=== PATIENT | female | born 1955 | race Caucasian/White ===

== ENCOUNTER 2016-06-28 15:49 | Emergency (ER) | payer OTHER ==
[~2016-06-28] VITALS: Ht 165.1 cm; Wt 54.4 kg
[~2016-06-28 15:49] MED LIST: ABILIFY10 MG PO; ALBUTEROL0.09 MG/A1 IH; ATIVAN0.5 M1 PO; HALOPERIDOL2 M1 PO; NIFEDICAL XL30 M1 PO; RESTORIL15 MG PO; VENTOLIN H0.09 MG/Ac IH; [UNRECOGNIZED DRUG - OTHER] PO
[2016-06-28 15:54] VITALS: BP 177/85
--- NOTE | 2016-06-28 18:35 | NUR ---
Pt taken to bed 8.
--- NOTE | 2016-06-28 18:54 | NUR ---
PT CAME TO ER DUE TO SOB X3 WEEKS. PT STATES SHE HAS A HX OF ASTHMA/COPD. PT STATES THAT SHE STILL SMOKE A LITTLE AND TRYING TO QUIT. PT HAS DIFFICULTY OF SPEAKING. PRODUCTIVE COUGH NOTED. DENIES FEVER / CP/ N/V.NO ACUTE DISTRESS NOTED AT THIS TIME. ALL MONITORS PLACED IN. HOB ELEVATED. SAFETY PRECAUTION INSTITUTED;SIDE RAILS UP;BED BRAKES APPLIED. NEEDS ATTENDED. MD AWARE OF PT STATUS.
--- NOTE | 2016-06-28 18:56 | NUR ---
60/F presents to the ED for evaluation of SOB x2 weeks. Pt also c/o anxiety at this time. Pt states "I take an anxiety medicine at 6pm that I need to take." Pt denies pain, denies chest pain. Pt is AOX4, speaking if full sentences. 96% on room air. Pt does not appear to be in distress. VSS. Pt states "MY blood pressure is high because I need my medication for anxiety." Pt states "I take half a tab of Ativan. That's all I need."
--- NOTE | 2016-06-28 19:15 | NUR ---
TRANSFER OF CARE/REPORT GIVEN TO RN MONIQUE
--- NOTE | 2016-06-28 19:16 | NUR ---
RECEIVED REPORT FROM DAY NURSE CORRY VANN AND JANAE MOSES FOR TRANSFER OF CARE.
--- NOTE | 2016-06-28 19:25 | NUR ---
DR PAN AT BEDSIDE EVALUATING PATIENT.
[2016-06-28] MEDS ORDERED: ALBUTEROL 0.083% 2.5 MG/3 ML NEBU INH ONE (19:40)
[2016-06-28 20:12] VITALS: BP 135/78
--- NOTE | 2016-06-28 20:12 | NUR ---
Patient discharged with v/s stable. Written and verbal after care instructions given and explained. Patient alert, oriented and verbalized understanding of instructions. Ambulatory with steady gait. All questions addressed prior to discharge. ID band removed. Patient advised to follow up with PMD. Rx of ATROVENT given. Patient educated on indication of medication including possible reaction and side effects. Opportunity to ask questions provided and answered.
== END 2016-06-28 20:12 | disposition home or self-care (01) ==
LOC: MED 15:49
DX: J44.1 Chronic obstructive pulmonary disease with (acute) exacerbation (principal); J45.909 Unspecified asthma, uncomplicated; I10 Essential (primary) hypertension; F17.210 Nicotine dependence, cigarettes, uncomplicated; Z86.73 Personal history of transient ischemic attack (TIA), and cerebral infarction without residual deficits
CPT/HCPCS: 71020; 94640; 94664; 99284; J7613

== ENCOUNTER 2017-11-27 12:38 | Inpatient (IN) | payer OTHER ==
[~2017-11-27] VITALS: Ht 162.6 cm; Wt 47.2 kg
[~2017-11-27 12:38] MED LIST changes: +ABI10 PO; -ABILIFY10 MG PO; +ALBU0.0912 IH; +ALBU0.0939 IH; -ALBUTEROL0.09 MG/A1 IH; +ATI.5 PO; -ATIVAN0.5 M1 PO; +HALO2TAB PO; -HALOPERIDOL2 M1 PO; +MULT1CAP64 PO; -NIFEDICAL XL30 M1 PO; -RESTORIL15 MG PO; -VENTOLIN H0.09 MG/Ac IH; -[UNRECOGNIZED DRUG - OTHER] PO
--- NOTE | 2017-11-27 12:38 | NUR ---
PT BIBA FOR RESPIRATORY DISTRESS WAS GIVEN BREATHING TX 10MG ALBUTEROL AND 0.5MG WITH NO ADVERSE REACTION POST TX B\S RHONCHI AND ABG DRAWN ON LB WITHOUT INCIDENT AND RESULTS GIVEN TO DR. AUGUSTE AND PT WAS THEN PLACED ON REDD BIPAP WITH SETTING 12/6 RR 20 FIO2 40% , MED FACE MASK WITH GEL PROTETIC IN PLACE, ALARMS ON AND AUDIBLE AND ABMU BAG AT HOB.
[2017-11-27 12:40] VITALS: BP 217/149
[2017-11-27] MEDS ORDERED: IPRATROPIUM 0.02% 0.5 MG/2.5 ML NEBU INH ONE (12:40)
[2017-11-27] MEDS ORDERED: MAG SULF 2000 MG/WATER PREMIX 50 ML IV ONE (12:40)
[2017-11-27] MEDS ORDERED: methylPREDNISolone SS 125 MG/2 ML VIAL IVP ONE (12:40)
[2017-11-27] MEDS ORDERED: NACL 0.9% 500 ML IV SCH (12:40)
[2017-11-27] MEDS ORDERED: ALBUTEROL 0.083% 2.5 MG/3 ML NEBU INH ONE (12:40)
--- NOTE | 2017-11-27 12:42 | NUR ---
62/F BIBA FOR C/O REEPIRATORY DISTRESS S/P SZ LIKE ACTIVITY WHILE AT [facility]. PER EMS, PT HAD FULL TONIC CLONIC SZ LIKE ACTIVITY FOR APPROXIMATELY 2 MINS. PT WITH RHONCI, SHALLOW RESPS, COUGHING UP CHUNKS OF FOOD UPON EMS ARRIVAL. PT O2 SATS 87% INITIALLY. HX: SZ.LUNGS RHONCHI& WEEZING BL. PATIENT STATES PAIN OF 0/10 AT THIS TIME; VSS; PATIENT POSITIONED FOR COMFORT; HOB ELEVATED; BEDRAILS UP X2; BED DOWN. ER MADE AWARE OF PT STATUS. Addendum: 11/27/17 at 1542 by MED1 DONNIE LEGS SWELLING.
[2017-11-27] MEDS ORDERED: METO25TE2 PO (13:02)
[2017-11-27] MEDS ORDERED: ATRMDI INH (13:02)
[2017-11-27] MEDS ORDERED: NAPR-54 PO (13:02)
[2017-11-27] MEDS ORDERED: MULT-405 PO (13:02)
[2017-11-27] MEDS ORDERED: NIFE30TE5 PO (13:02)
[2017-11-27] MEDS ORDERED: DETLA4 PO (13:02)
[2017-11-27] MEDS ORDERED: PAX10 PO (13:02)
[2017-11-27] MEDS ORDERED: CLON1TAB PO (13:02)
[2017-11-27 13:08] LABS: BASOPHILS # (AUTO) 0.1 K/uL (0.00-0.22); BASOPHILS % (AUTO) 0.5 % (0.0-2.0); EOSINOPHILS # (AUTO) 0.2 K/uL (0-0.4); EOSINOPHILS % (AUTO) 1.2 % (0.0-4.0); HEMATOCRIT 48.9 % (36-48); HEMOGLOBIN 16.1 g/dL (12.0-16.0); LYMPHOCYTES # (AUTO) 5.8 K/uL (2.5-16.5); MEAN CORPUSCULAR HEMOGLOBIN 31 pg (27-31); MEAN CORPUSCULAR HGB CONC 33 g/dL (33-37); MEAN CORPUSCULAR VOLUME 92.5 fL (80-94); MONOCYTES # (AUTO) 1.1 K/uL (0.8-1.0); MONOCYTES % (AUTO) 7.5 % (1.7-9.3); NEUTROPHILS # (AUTO) 7.1 K/uL (1.8-7.7); NEUTROPHILS % (AUTO) 49.8 % (42.2-75.2); PLATELET COUNT (AUTO) 240 K/uL (140-450); RED BLOOD CELL COUNT(AUTO) 5.29 MIL/uL (4.20-5.40); RED CELL DISTRIBUTION WIDTH 13.4 % (11.6-13.7); WHITE BLOOD COUNT (AUTO) 14.2 K/uL (4.8-10.8)
[2017-11-27] MEDS ORDERED: NITROGLYCERIN 2% 1 GM PKT TP ONE (13:10)
[2017-11-27] MEDS ORDERED: NITROGLYCERIN 0.4 MG TAB SL ONE (13:10)
[2017-11-27] MEDS: MAGNESIUM SULFATE 1GM in DEXTROSE 5% 100 ML PREMIX IV SCH ×2 (13:13→16:00)
[2017-11-27 13:26] VITALS: BP 188/132
--- NOTE | 2017-11-27 13:30 | NUR ---
Laura giang in ED - 11/27/17 at 1340 by MED1 RT AT BEDSIDE FOR CPAP.
--- NOTE | 2017-11-27 13:30 | NUR ---
RT AT BEDSIDE FOR BIPAP.
[2017-11-27 13:51] LABS: ANION GAP 22.5 (8-16); CARBON DIOXIDE 17.8 mmol/L (21-32); CREATININE 0.7 mg/dL (0.6-1.3); POTASSIUM 3.3 mmol/L (3.5-5.1); TOTAL BILIRUBIN 0.6 mg/dL (0.0-1.0)
--- NOTE | 2017-11-27 14:06 | NUR ---
Patient being reevaluated by DR AUGUSTE at bedside.
[2017-11-27] MEDS ORDERED: LEVOFLOXACIN 500 MG/D5W PREMIX 100 ML IV ONE (14:10)
[2017-11-27] MEDS ORDERED: FUROSEMIDE 20 MG/2 ML VIAL IVP ONE (14:10)
[2017-11-27 14:30] LABS: APPEARANCE,URINE SL CLOUDY (CLEAR); BILIRUBIN,URINE NEGATIVE (NEGATIVE); BLOOD, URINE 1+ (NEGATIVE); COLOR,URINE YELLOW (YELLOW); LEUKOCYTE ESTERASE ,URINE 3+ (NEGATIVE); NITRITE, URINE POSITIVE (NEGATIVE); UGLUCOSE NEGATIVE (NEGATIVE)
[2017-11-27 14:49] LABS: RBC,URINE 3-10 (FEW) /HPF (0-5); WBC,URINE TOO MANY TO COUNT /HPF (0-5)
--- NOTE | 2017-11-27 14:55 | NUR ---
RT AT BEDSIDE FOR BLOOD GAS
--- NOTE | 2017-11-27 15:03 | NUR ---
Patient being reevaluated by DR AUGUSTE at bedside. Addendum: 11/27/17 at 1504 by [facility] Patient appears to be resting comfortably in bed. BP 153/95 , PULSE OX 90% WITH BIPAP. PT CAN ANSWER QUESTION : YES/NO. RT AT BEDSIDE.
[2017-11-27 15:12] VITALS: BP 153/95
--- NOTE | 2017-11-27 15:12 | NUR ---
BIPAP CHECK, PT SLEEPING, ABG DRAWN ON LB WITHOUT INCIDENT AND RESULTS GIVEN TO WITH NO CHANGES MADE TO BIPAP
[2017-11-27] MEDS ORDERED: NACL 0.9% 1,000 ML IV ONE (15:15)
[2017-11-27] MEDS ORDERED: MORPHINE SULFATE 2 MG/ML SYR IVP PRN (15:15)
[2017-11-27] MEDS ORDERED: ONDANSETRON 4 MG/2 ML VIAL IVP PRN (15:15)
[2017-11-27] MEDS ORDERED: ACETAMINOPHEN 325 MG TAB PO PRN (15:15)
--- NOTE | 2017-11-27 15:21 | NUR ---
RT AT BEDSIDE ; PULSE OX 90%
--- NOTE | 2017-11-27 15:30 | NUR ---
PATIENT ARRIVED ON FLOOR VIA GURNEY, REPORT RECEIVED FROM ER NURSE AT BEDSIDE FOR CONTINUITY OF CARE. PATIENT AWAKE, ON 40% VENTURI MASK WITH 10L O2. PATIENT COOPERATIVE, AOX3. IV TO RAC PATENT, INTACT, AND ASYMPTOMATIC, IV TO L FA INFUSING IVF WELL. PATIENT HAS JONES CATHETER DRAINING TO GRAVITY WITH YELLOW CLOUDY URINE. DX WITH ACUTE RENAL FAILURE. BILATERAL WHEEZES IN LUNGS, ACTIVE BOWEL SOUNDS. MRSA SCREENING DONE. INITIAL ASSESSMENT DONE. PATIENT LOWER LEFT ANKLE EDEMATOUS, NON PITTING. ORIENTED PATIENT TO ROOM, CALL LIGHT, PATIENT VERBALIZED UNDERSTANDING. SAFETY PRECAUTION IN PLACE CALL LIGHT WITHIN REACH, WILL CONTINUE TO MONITOR PATIENT.
--- NOTE | 2017-11-27 15:59 | NUR ---
Patient will be admitted to care of DR RAMIREZ. Admited to TELE. Will go to room 107A. Belongings list completed. Report to ROSE WHEATLEY.
[2017-11-27 16:00] VITALS: BP 130/80
--- NOTE | 2017-11-27 16:03 | NUR ---
PT MOVED TO ROOM 107A AND PLACED ON VENTI MASK AT 40% SPOKE WITH ABOUT BIPAP AND DR. RAMIREZ ORDERED BIPAP PRN
[2017-11-27] MEDS ORDERED: LORazepam 2 MG/ML VIAL IVP PRN (16:10)
--- NOTE | 2017-11-27 16:25 | NUR ---
DR RAMIREZ IN TO ASSESS THE PATIENT. WILL WAIT FOR HER UPDATED ORDERS.
[2017-11-27] MEDS ORDERED: FAMOTIDINE 20 MG/2 ML VIAL IV SCH (17:00)
--- NOTE | 2017-11-27 18:15 | NUR ---
ORDERED MEDICATIONS GIVEN, PATIENT TOLERATED IT WELL. NO SIGN OF DISTRESS OR SOB NOTED. PATIENT DENIES PAIN. SAFETY PRECAUTION IN PLACE, WILL CONTINUE TO MONITOR PATIENT.
[2017-11-27] MEDS ORDERED: IPRATROPIUM 0.02% 0.5 MG/2.5 ML NEBU IH SCH (19:00)
[2017-11-27] MEDS ORDERED: ALBUTEROL 0.083% 2.5 MG/3 ML NEBU IH SCH (19:00)
[2017-11-27 19:02] LABS: BARBITURATE, URINE NEG. ng/ml (NEG <=200); BENZODIAZEPINE, URINE NEG. ng/mL (NEG <=200); CANNABINOID, URINE NEG. ng/mL (NEG <=50); COCAINE, URINE NEG. ng/mL (NEG <=300); OPIATE, URINE NEG. ng/mL (NEG <=2000); PHENCYCLIDINE SCREEN,URINE NEG. ng/mL (NEG <=25)
[2017-11-27] MEDS: ALBUTEROL SULFATE/IPRATROPIU 3 ML SOL IH SCH (19:26)
--- NOTE | 2017-11-27 19:29 | NUR ---
REPORT GIVEN TO CLERK TELEVISION PRODUCTION NURSE AT BEDSIDE FOR CONTINUITY OF CARE. PATIENT RESTING IN BED, PATIENT IN STABLE CONDITION.
--- NOTE | 2017-11-27 19:30 | NUR ---
ASSUMED CARE OF PATIENT, ASLEEP EASILY AROUSABLE. NO COMPLAINS. O2 VENTURI MASK. CALL LIGHT WITHIN REACH. IV INFUSING WELL. CALL LIGHT WITHIN REACH.
--- NOTE | 2017-11-27 20:00 | NUR ---
VITAL SIGNS STABLE. BREATHING TREATMENT BY RT AT BEDSIDE. CALL LIGHT WITHIN REACH.
[2017-11-27 20:01] VITALS: BP 122/83
[2017-11-27] MEDS ORDERED: VALPROATE SODIUM 750 MG in NACL 0.9% 100 ML IV ONE (21:00)
[2017-11-27] MEDS ORDERED: HALOPERIDOL 2 MG PO SCH (21:00)
--- NOTE | 2017-11-27 21:00 | NUR ---
TO CT SCAN DEPARTMENT VIA BED.
--- NOTE | 2017-11-27 21:30 | NUR ---
REFUSE TO EAT DINNER, TOOK MEDS. ASLEEP EASILY AROUSABLE. NO COMPLAINS. REPOSITIONED. CALL LIGHT WITHIN REACH.
[2017-11-27] MEDS: PIPERACILLIN/TAZOBACTAM 3.375 GM in DEXTROSE 5% 50 ML IV SCH (21:40)
[2017-11-27] MEDS: methylPREDNISolone SS 40 MG/ML VIAL IVP SCH (21:41)
[2017-11-27] MEDS: HALOPERIDOL 1 MG TAB PO SCH (21:41)
[2017-11-27] MEDS: clonazePAM 0.5 MG TAB PO SCH (21:41)
[2017-11-28 00:01] VITALS: BP 113/70
[2017-11-28] MEDS: ALBUTEROL SULFATE/IPRATROPIU 3 ML SOL IH SCH ×4 (01:06→19:39)
--- NOTE | 2017-11-28 01:40 | NUR ---
REPOSITIONED. RT AT BEDSIDE FOR BREATHING TREATMENT, CALL LIGHT WITHIN REACH. VITAL SIGNS STABLE.
[2017-11-28 04:06] VITALS: BP 114/81
--- NOTE | 2017-11-28 04:07 | NUR ---
ASLEEP, EASILY AROUSABLE. NO COMPLAINS. AFEBRILE. VITAL SIGNS STABLE. CALL LIGHT WITHIN REACH.
[2017-11-28] MEDS: PIPERACILLIN/TAZOBACTAM 3.375 GM in DEXTROSE 5% 50 ML IV SCH (04:51)
[2017-11-28] MEDS: methylPREDNISolone SS 40 MG/ML VIAL IVP SCH ×3 (04:52→21:00)
--- NOTE | 2017-11-28 07:18 | NUR ---
ENDORSED CARE AT BEDSIDE WITH BAM WHEATLEY, PATIENT IN STABLE CONDITION.
--- NOTE | 2017-11-28 07:20 | NUR ---
RECEIVED PT FROM E COMMERCE MARKETING ANALYST NURSE, PT IS AWAKE, LYING ON THE BED, IN LOW POSITION, CHALK MOLDING MACHINE OPERATOR AILS ARE UP AND PT HAS A VENTURI MASK IN PLACE AT 40%. PT VERBALIZED NO PAIN AND SAID THAT SHE FEELS BETTER, PLAN OF CARE WAS DISCUSSED AND PT VERBALIZED UNDERSTANDING. PT HAS A JONES CATHETER IN PLACE. NO SIGN F DISTRESS NOTED AND WILL CONTINUE TO MONITOR.
--- NOTE | 2017-11-28 07:25 | NUR ---
PT IS AWAKE AND LYING ON THE BED, BED IN SEMI-STRAUSS'S POSITION, WITH VENTURI MASK IN PLACED AT 40%. VITAL SIGNS TAKE AND IS STABLE. RT CAME AND GAVE A BREATHING TREATMENT TO THE PT, PT TOLERATED IT. NO SIGN OF DISTRESS NOTED AND WILL CONTINUE TO MONITOR.
[2017-11-28 07:27] LABS: HEMATOCRIT 41.7 % (36-48); HEMOGLOBIN 14.2 g/dL (12.0-16.0); MEAN CORPUSCULAR HEMOGLOBIN 31 pg (27-31); MEAN CORPUSCULAR HGB CONC 34 g/dL (33-37); MEAN CORPUSCULAR VOLUME 90.4 fL (80-94); PLATELET COUNT (AUTO) 194 K/uL (140-450); RED BLOOD CELL COUNT(AUTO) 4.62 MIL/uL (4.20-5.40); RED CELL DISTRIBUTION WIDTH 13.6 % (11.6-13.7); WHITE BLOOD COUNT (AUTO) 20.7 K/uL (4.8-10.8)
--- NOTE | 2017-11-28 07:31 | NUR ---
REDD RESPIRONICS V60 BIPAP AT BEDSIDE FOR PRN SOB USE
[2017-11-28 07:56] LABS: ALBUMIN 3.5 g/dL (3.4-5.0); ANION GAP 12.4 (8-16); CARBON DIOXIDE 25.1 mmol/L (21-32); CREATININE 0.6 mg/dL (0.6-1.3); TOTAL BILIRUBIN 0.4 mg/dL (0.0-1.0)
[2017-11-28 08:00] VITALS: BP 123/82
--- NOTE | 2017-11-28 08:50 | NUR ---
PATIENT HAS BEEN SCREENED AND CATEGORIZED HIGH NUTRITION RISK. PATIENT WILL BE SEEN WITHIN 1-2 DAYS OF ADMISSION. 11/28/17 11/29/[address]
[2017-11-28 08:53] LABS: LYMPHOCYTES % (MANUAL) 8 % (20-46); MONOCYTES % (MANUAL) 5 % (5-12)
--- NOTE | 2017-11-28 08:56 | NUR ---
RECEIVED A CRITICAL LAB VALUE REPORT FROM [employer] VIGNESH FOR THE PT'S POTASSIUM LEVEL OF 2.5. WILL INFORM THE PCP.
[2017-11-28 08:58] LABS: POTASSIUM 2.5 mmol/L (3.5-5.1)
[2017-11-28] MEDS ORDERED: FUROSEMIDE 40 MG/4 ML VIAL IVP SCH (09:00)
[2017-11-28] MEDS ORDERED: METOPROLOL SUCCINATE 50 MG TABER PO SCH (09:00)
--- NOTE | 2017-11-28 09:17 | NUR ---
DR. RAMIREZ CALLED AND REPORTED THE PT'S POTASSIUM LEVEL OF 2.5. DR. RAMIREZ MADE A TELEPHONE ORDER OF K-DUR 40 MEQ TIMES 2 DOSES ONE TIME. TELEPHONE ORDER READ BACK AND VERIFIED TO DR. RAMIREZ. WILL CARRY OUT MD ORDER.
--- NOTE | 2017-11-28 09:20 | NUR ---
ECHO IS BEING DONE TO THE PT, PT IS SLEEPING WITH VENTURI MASK IN PLACE AT 40%. NO SIGN OF DISTRESS NOTED. WILL MONITOR PT.
[2017-11-28] MEDS: clonazePAM 0.5 MG TAB PO SCH ×2 (09:36→21:02)
[2017-11-28] MEDS: HALOPERIDOL 1 MG TAB PO SCH ×2 (09:36→21:00)
[2017-11-28] MEDS: PARoxetine 10 MG TAB PO SCH (09:37)
[2017-11-28] MEDS: TOLTERODINE LA 4 MG CAPER PO SCH (09:38)
[2017-11-28] MEDS: ENOXAPARIN 30 MG/0.3 ML SYR SUBQ SCH (09:40)
--- NOTE | 2017-11-28 11:20 | NUR ---
RECEIVED A CRITICAL LAB VALUE REPORT FROM [email or web address], VIGNESH FOR THE PT'S LACTIC ACID OF 2.2. WILL INFORM DR. RAMIREZ OF THE CRITICAL LAB REPORT.
--- NOTE | 2017-11-28 11:25 | NUR ---
PAGED DR. RAMIREZ TO REPORT TO THE MD ABOUT THE CRITICAL LAB VALUE OF THE PT'S LACTIC ACID WHICH IS 2.2, AWAITING DR. RAMIREZ"S CALL BACK.
[2017-11-28] MEDS: POTASSIUM CHLORIDE 10 MEQ TABER PO SCH ×2 (11:32→17:19)
[2017-11-28 12:00] VITALS: BP 105/67
--- NOTE | 2017-11-28 13:25 | NUR ---
DR. RAMIREZ IS IN THE NURSE'S STATION, INFORMED HER OF THE PT'S LACTIC ACID LEVEL OF 2.2, DR. RAMIREZ ACKNOWLEDGED AND SAID THAT IT'S BETTER NOW AND IT TRENDED DOWN.
--- NOTE | 2017-11-28 13:37 | NUR ---
SATURATION 96% ON SUPPLEMENTAL OXYGEN AT 40%/6LPM VIA VENTI MASK DR. COREY RAMIREZ AT BEDSIDE PER MD TITRATE FIO2 LESS THAN 95% ON VENTI MASK POST HHN THERAPY TITRATED FIO2 TO 35% BAM/CORRY NOTIFIED
--- NOTE | 2017-11-28 13:40 | NUR ---
DR. RAMIREZ WENT TO SEE THE PT AND SPOKE TO THE PT, PT RESPONDED APPROPRIATELY. DR. RAMIREZ SAID TO KEEP THE O2 SAT AT 95% AND NOT TO KEEP IT ABOVE IT. PT IS ON A BREATHING TREATMENT NOW. PT TOLERATED IT AND NO SIGN OF DISTRESS NOTED. WILL CONTINUE TO MONITOR.
--- NOTE | 2017-11-28 13:40 | NUR ---
DR. RAMIREZ VISITED AND SPOKE TO THE PT AND SAID TO GIVE THE PT LASIX AND THAT SHE INCREASED THE LASIX TO BID, ACKNOWLEDGED.
--- NOTE | 2017-11-28 13:46 | NUR ---
ACKNOWLEDGED A PT EVALUATION AND A CONSULT FOR DR. ALFONZO MAGUIRE FOR THE PT ORDERED BY DR. RAMIREZ.
--- NOTE | 2017-11-28 15:45 | NUR ---
0620 CALLED [facility] [phone] AND SPOKE WITH LUCIA CAZARES AT [phone] AND SHE STATED THAT OF SUNDAY ALL [facility] IPA PATIENTS ARE TO GO TO [facility]. INITIAL REVIEW FAXED TO [facility] [phone]
[2017-11-28 16:00] VITALS: BP 110/65
--- NOTE | 2017-11-28 17:00 | NUR ---
PT IS AWAKE AND VITAL SIGNS TAKEN AND IS STABLE, MEDICATIONS GIVEN VIA ORAL AND IV PUSH AND PT TOLERATED IT. NO SIGN OF DISTRESS NOTED. WILL MONITOR.
[2017-11-28] MEDS: FUROSEMIDE 40 MG/4 ML VIAL IVP SCH (17:19)
--- NOTE | 2017-11-28 19:20 | NUR ---
ENDORSED PT TO SHOE POLISHER NURSE, VIGNESH FOR CONTINUITY OF CARE, PT IS SATBLE AT THIS TIME.
--- NOTE | 2017-11-28 19:21 | NUR ---
RECEIVED PT IN STABLE CONDITION FROM AM NURSE. ASLEEP. BUT AROUSE EASILY WHEN NAME CALLED. ON TELE MONITOR. WITH O2 BY VENTURI MASK , SAT 97%. NO SOB NOTED. ON BEDREST. WITH HL ON THE LT FA#22 AND RT AC G#20. BOTH CLEAR AND PATENT. NO C/O ANY DISCOMFORT NOR PAIN NOTED. PLAN OF CARE DISCUSSED AND VERBALIZED UNDERSTANDING. CALL LIGHT PLACED WITHIN EASY REACH. BED ON LOW POSITION. FREQUENT ROUNDS NEEDED. WILL CONTINUE TO MONITOR.
[2017-11-28 20:00] VITALS: BP 114/76
[2017-11-28] MEDS: PIPER/TAZO 3.375GM/D5W PREMIX 50 ML IV SCH (21:00)
--- NOTE | 2017-11-28 21:00 | NUR ---
ALL NIGHT MEDICATIONS GIVEN. TOLERATED WELL. STILL WITH O2 VENTURI MASK. NO SOB NOTED. WILL CONTINUE TO MONITOR.
[2017-11-29 00:10] VITALS: BP 108/61
--- NOTE | 2017-11-29 00:30 | NUR ---
PT REQUESTED FOR SOME SANDWICH. FINISHED HALF OF SANDWICH.
[2017-11-29] MEDS: ALBUTEROL SULFATE/IPRATROPIU 3 ML SOL IH SCH ×4 (01:11→19:33)
--- NOTE | 2017-11-29 02:00 | NUR ---
MADE ROUNDS. PT IS ASLEEP. ON CONTINUOUS O2 BY VENTURI MASK. NO DISTRESS NOTED.
[2017-11-29 04:13] VITALS: BP 130/72
[2017-11-29] MEDS: PIPER/TAZO 3.375GM/D5W PREMIX 50 ML IV SCH ×3 (04:16→21:03)
[2017-11-29] MEDS: methylPREDNISolone SS 40 MG/ML VIAL IVP SCH ×3 (04:16→21:03)
--- NOTE | 2017-11-29 07:06 | NUR ---
RECEIVED PATIENT ON VENTIMASK FIO2 35%, O2 SAT 97%. SCHEDULED BREATHING TREATMENT ADMINISTERED. PATIENT TOLERATED TX WELL, NO ADVERSE SIDE EFFECTS. NO RESPIRATORY DISTRESS NOTED AT THIS TIME. WILL CONTINUE TO MONITOR.
[2017-11-29 07:13] LABS: BASOPHILS % (AUTO) 0.1 % (0.0-2.0); HEMATOCRIT 40.1 % (36-48); HEMOGLOBIN 13.3 g/dL (12.0-16.0); LYMPHOCYTES # (AUTO) 0.5 K/uL (2.5-16.5); LYMPHOCYTES % (AUTO) 3.5 % (20.5-51.1); MEAN CORPUSCULAR HEMOGLOBIN 31 pg (27-31); MEAN CORPUSCULAR HGB CONC 33 g/dL (33-37); MONOCYTES # (AUTO) 0.6 K/uL (0.8-1.0); MONOCYTES % (AUTO) 3.9 % (1.7-9.3); NEUTROPHILS # (AUTO) 13.4 K/uL (1.8-7.7); NEUTROPHILS % (AUTO) 92.5 % (42.2-75.2); PLATELET COUNT (AUTO) 189 K/uL (140-450); RED BLOOD CELL COUNT(AUTO) 4.35 MIL/uL (4.20-5.40); RED CELL DISTRIBUTION WIDTH 13.6 % (11.6-13.7); WHITE BLOOD COUNT (AUTO) 14.5 K/uL (4.8-10.8)
--- NOTE | 2017-11-29 07:18 | NUR ---
ENDORSED PT IN STABLE CONDITION TO AM NURSE. FOR CONTINUITY OF CARE.
--- NOTE | 2017-11-29 07:23 | NUR ---
RECEIVED PT FROM MAILROOM COORDINATOR NURSEVIGNESH, PT IS ASLEEP AND LYING ON THE BED, PT HAS AN IV LINE ON THE LEFT AC, G. 20, INTACT AND ON THE RT FA G. 22, INTACT ON A SALINE LOCK. SIDE RAILS ARE UP AND CALL LIGHT WITHIN REACH. SAFETY PRECAUTION ENFORCED. PT IS ON VENTURI MASK AT 35% AND PT IS TOLERATING IT, RESPIRATIONS EVEN AND NO SIGN OF DISTRESS NOTED. WILL CONTINUE TO MONITOR.
[2017-11-29 07:46] LABS: ALBUMIN 3.5 g/dL (3.4-5.0); ANION GAP 11.2 (8-16); CREATININE 0.8 mg/dL (0.6-1.3); POTASSIUM 4.2 mmol/L (3.5-5.1); TOTAL BILIRUBIN 0.4 mg/dL (0.0-1.0)
[2017-11-29] MEDS: HALOPERIDOL 1 MG TAB PO SCH ×2 (09:13→21:03)
[2017-11-29] MEDS: PARoxetine 10 MG TAB PO SCH (09:13)
[2017-11-29] MEDS: TOLTERODINE LA 4 MG CAPER PO SCH (09:14)
[2017-11-29] MEDS: FUROSEMIDE 40 MG/4 ML VIAL IVP SCH ×2 (09:14→16:14)
[2017-11-29] MEDS: clonazePAM 0.5 MG TAB PO SCH ×2 (09:16→21:04)
[2017-11-29] MEDS: ENOXAPARIN 30 MG/0.3 ML SYR SUBQ SCH (09:17)
--- NOTE | 2017-11-29 09:31 | NUR ---
PT IS AWAKE AND SEATED ON THE BED, MEDICATIONS GIVEN BUT VITAL SIGNS WAS CHECKED PRIOR TO MEDICATION ADMINISTRATION. PT TOLERATED THE MEDICATIONS WELL AND NO SIGN OF DISTRESS NOTED. WILL MONITOR.
[2017-11-29 12:00] VITALS: BP 130/80
--- NOTE | 2017-11-29 12:38 | NUR ---
FNS PERSONNEL SCREENED AND EVALUATED THE PT AND RECOMMENDED TO GIVE ENSURE TO THE PT TWICE DAILY.
--- NOTE | 2017-11-29 13:35 | NUR ---
PT WAS FOUND AND TRANSFERRED TO ROOM 104-B AT THIS TIME.
--- NOTE | 2017-11-29 13:40 | NUR ---
RT IS GIVING THE BREATHING TX TO THE PT AND PT IS TOLERATING IT WELL. RT TECH DECREASED THE O2 LEVEL TO 2L NC. ACKNOWLEDGED AND WILL FOLLOW THROUGH.
--- NOTE | 2017-11-29 13:57 | NUR ---
SCHEDULED BREATHING TREATMENT ADMINISTERED. TOLERATED TX WELL, NO ADVERSE SIDE EFFECTS. BREATH SOUNDS CLEAR WITH GOOD COUGH EFFORT. PATIENT ABLE TO SPONTANEOUSLY EXPECTORATE SECRETIONS. TITRATED FIO2 TO 2L NC TO MAINTAIN OXYGEN SATURATION AT 95%. NO RESPIRATORY DISTRESS NOTED AT THIS TIME. WILL CONTINUE TO MONITOR.
--- NOTE | 2017-11-29 14:20 | NUR ---
PT WAS SEEN AND TALKED BY DR. RAMIREZ. AND SAID THAT ONCE THE ECHO RESULT IS POSTED, THE PT MIGHT BE ABLE TO GO BACK TO THE BOARD AND CARE.
--- NOTE | 2017-11-29 14:25 | NUR ---
CALLED CARDIOLOGY DEPARTMENT AND MADE A FOLLOW UP ON THE RESULT AND ACCORDING TO EUSEBIO, THEY ARE JUST WAITING FOR DR. MAGUIRE TO READ THE RESULT. INFORMATION WAS RELAYED TO DR. RAMIREZ AND DR. RAMIREZ ACKNOWLEDGED.
--- NOTE | 2017-11-29 15:23 | NUR ---
FAXED CONCURRENT REVIEW TO [facility] [phone] PHONE VAZQUEZ [phone]
[2017-11-29 16:00] VITALS: BP 136/73
--- NOTE | 2017-11-29 16:00 | NUR ---
PT IS ASLEEP AND RESPIRATIONS EVEN, VITAL SIGNS TAKEN AND PT WAS AWAKEN AND OPENED HER EYES TO ACCOMMODATE VITAL SIGNS CHECKING. NO SIGN OF DISTRESS NOTED AND VITAL SIGN IS STABLE. WILL MONITOR PT.
--- NOTE | 2017-11-29 16:13 | NUR ---
11/29/17 RD INITIAL ASSESSMENT COMPLETED PLEASE REFER TO NUTRITION ASSESSMENT UNDER CARE ACTIVITY FOR ESTIMATED NUTRITIONAL NEEDS. 1. CONTINUE CARDIAC DIET TOLERATED 2. RECOMMEND ENSURE WITH MEALS BID 3. RD TO FOLLOW-UP 2-3 DAYS, HIGH RISK MAYA WHALEY RD
--- NOTE | 2017-11-29 16:20 | NUR ---
Social Workers Notes: I attempted to meet with patient to discuss, confirm and gather patient's additional information. Patient was sleepy and unable to respond to any questions. I explained to patient my role as a Rn Office. Patient verbalized understanding. Per Patient she lives in the [facility] in [place] and will like to return to same facility. Patient stated not having an advance directive and declined all information and forms provided by these patient. Patient fall asleep and I ended the meeting.
--- NOTE | 2017-11-29 16:22 | NUR ---
PT IS AWAKEN AND TOLD THAT MEDICATION WILL BE GIVEN VIA IV PUSH AND PT VERBALIZED ACCEPTANCE. MEDICATION GIVEN AND PT TOLERATED IT. NO SIGN OF DISTRESS NOTED. SIDE RAILS ARE UP AND CALL LIGHT WITHIN REACH. BED ALARM ENFORCED. WILL MONITOR.
--- NOTE | 2017-11-29 16:30 | NUR ---
Junior Recruiter Notes: I call Patient's board and care [facility] at . I spoke to Alexandra cook pickled meat to discuss, confirm and gather additional information about Patient. Per Alexandra Patient is been in their board and care for about 2 years and she is able to return to their facility when she is ready and clear for discharge from [facility]. I thanked Alexandra for the information.
--- NOTE | 2017-11-29 19:15 | NUR ---
ENDORSED PT TO TUBE MAKING MACHINE OPERATOR NURSE, VIGNESH, FOR CONTINUITY OF CARE. PT IS STABLE AT THIS TIME.
--- NOTE | 2017-11-29 19:20 | NUR ---
RECEIVED PT IN STABLE CONDITION FROM AM NURSE. AWAKE ,ALERT AND ORIENTEDX3. ON TELE MONITOR. O22L/NC. NO DISTRESS NOTED. WITH OCCASIONAL NON PRODUCTIVE COUGH. GETTING BREATHING TREATMENTS. BEDREST. HAS IV ACCESS ON THE LT FA#22. CLEAR AND PATENT. SR ON TELE MONITOR. NO C;O ANY PAIN NOTED. PLAN OF CARE DISCUSSED AND VERBALIZED UNDERSTANDING. BED ON LOW POSITION. CALL LIGHT WITHIN EASY REACH. SIDE RAILS PADDED FOR SEIZURE PRECAUTIONS. WILL CONITNUE TO MONITOR.
[2017-11-29 20:00] VITALS: BP 154/83
--- NOTE | 2017-11-29 21:00 | NUR ---
TOLERATED ALL NIGHT MEDS. WILL CONTINUE TO MONITOR.
--- NOTE | 2017-11-29 23:00 | NUR ---
MADE ROUNDS. PT ASLEEP. NO S/S/ OF ANY DISCOMFORT NOR DISTRESS NOTED.
[2017-11-30 00:33] VITALS: BP 136/79
[2017-11-30] MEDS: ALBUTEROL SULFATE/IPRATROPIU 3 ML SOL IH SCH ×3 (01:00→13:47)
--- NOTE | 2017-11-30 01:30 | NUR ---
MADE ROUNDS. NO S/S OF ANY RESPIRATORY DISTRESS NOTED.
--- NOTE | 2017-11-30 03:20 | NUR ---
MADE ROUNDS. PT ASLEEP. NO S/S OF ANY DISCOMFORT NOTED.
[2017-11-30 04:23] VITALS: BP 157/85
[2017-11-30] MEDS: PIPER/TAZO 3.375GM/D5W PREMIX 50 ML IV SCH ×2 (04:26→12:42)
[2017-11-30] MEDS: methylPREDNISolone SS 40 MG/ML VIAL IVP SCH ×2 (04:26→13:03)
--- NOTE | 2017-11-30 07:03 | NUR ---
ENDORSED PT TO AM NURSE IN STABLE CONDITION FOR CONTINUITY OF CARE.
--- NOTE | 2017-11-30 07:10 | NUR ---
RECEIVED PT FROM PRINTED CIRCUIT BOARD DRAFTER NURSE, VIGNESH, PT IS ASLEEP, LYING ON THE BED WITH O2 AT 2L NC IN PLACE. RESPIRATIONS EVEN, PT HAS IV LINES ON THE LEFT AC G. 20 IN SALINE LOCK AND RT FA G. 22 IN SALINE LOCK ALSO, INTACT. SIDE RAILS ARE UP AND CALL LIGHT WITHIN REACH. NO SIGN OF DISTRESS NOTED AND WILL CONTINUE TO MONITOR.
--- NOTE | 2017-11-30 07:20 | NUR ---
PT IS AWAKE AND LYING ON THE BED, VITAL SIGNS TAKEN AND IS STABLE. SIDE RAILS ARE UP AND CALL LIGHT WITHIN REACH.NO SIGN OF DISTRESS NOTED WILL CONTINUE TO MONITOR.
[2017-11-30 07:38] LABS: HEMATOCRIT 39.1 % (36-48); HEMOGLOBIN 13.2 g/dL (12.0-16.0); LYMPHOCYTES # (AUTO) 0.7 K/uL (2.5-16.5); LYMPHOCYTES % (AUTO) 5.7 % (20.5-51.1); MEAN CORPUSCULAR HEMOGLOBIN 31 pg (27-31); MEAN CORPUSCULAR HGB CONC 34 g/dL (33-37); MONOCYTES # (AUTO) 0.4 K/uL (0.8-1.0); MONOCYTES % (AUTO) 3.2 % (1.7-9.3); NEUTROPHILS % (AUTO) 91.1 % (42.2-75.2); PLATELET COUNT (AUTO) 183 K/uL (140-450); RED BLOOD CELL COUNT(AUTO) 4.25 MIL/uL (4.20-5.40); RED CELL DISTRIBUTION WIDTH 13.7 % (11.6-13.7); WHITE BLOOD COUNT (AUTO) 13.1 K/uL (4.8-10.8)
[2017-11-30 08:00] VITALS: BP 118/74
[2017-11-30 08:00] LABS: ALBUMIN 3.4 g/dL (3.4-5.0); ANION GAP 13.5 (8-16); CARBON DIOXIDE 28.7 mmol/L (21-32); CREATININE 0.7 mg/dL (0.6-1.3); POTASSIUM 4.2 mmol/L (3.5-5.1); TOTAL BILIRUBIN 0.3 mg/dL (0.0-1.0)
[2017-11-30] MEDS: PARoxetine 10 MG TAB PO SCH (09:35)
[2017-11-30] MEDS: FUROSEMIDE 40 MG/4 ML VIAL IVP SCH ×2 (09:35→17:05)
[2017-11-30] MEDS: HALOPERIDOL 1 MG TAB PO SCH (09:35)
[2017-11-30] MEDS: clonazePAM 0.5 MG TAB PO SCH (09:39)
[2017-11-30] MEDS: ENOXAPARIN 30 MG/0.3 ML SYR SUBQ SCH (09:39)
[2017-11-30] MEDS: TOLTERODINE LA 4 MG CAPER PO SCH (09:40)
--- NOTE | 2017-11-30 09:40 | NUR ---
PT IS AWAKE AND SEATED ON THE BED, BP AND O2 SAT WERE CHECKED PRIOR TO MEDICATION ADMINISTRATION. MEDICATIONS GIVEN AND PT TOLERATED IT, ASPIRATION PRECAUTION ENFORCED. NO SIGN OF DISTRESS NOTED AND WILL CONTINUE TO MONITOR.
[2017-11-30 12:00] VITALS: BP 141/87
--- NOTE | 2017-11-30 12:15 | NUR ---
PT IS AWAKE AND SEATED ON THE BED, AND ASKED FOR A BEDPAN, ASSISTED AND PT WAS MADE COMFORTABLE. NO SIGN OF DISTRESS NOTED. WILL MONITOR.
--- NOTE | 2017-11-30 12:47 | NUR ---
PT IS AWAKE AND STILL EATING HER LUNCH, MEDICATION GIVEN VIA IVPB AND PT TOLERATED IT. NO SIGN OF DISTRESS NOTED AND WILL MONITOR.
--- NOTE | 2017-11-30 13:25 | NUR ---
PT IS HAVING BREATHING TREATMENT NOW AND PT IS TOLERATING IT.
--- NOTE | 2017-11-30 15:19 | NUR ---
ACKNOWLEDGED A DISCHARGED ORDER FOR THE PT FROM DR. RAMIREZ. WILL FACILITATE DISCHARGE PROCESS.
[2017-11-30] MEDS ORDERED: LEVO500T98 PO (15:29)
[2017-11-30] MEDS ORDERED: FURO-572 PO (15:34)
[2017-11-30 16:00] VITALS: BP 138/79
--- NOTE | 2017-11-30 16:26 | NUR ---
FAXED ORDER FOR SNF AND FACE SHEET TO CHAY AT [facility] [phone] PHONE CHAY [phone] CHAY SAID THE AUTH FOR [facility] IS [id number] THE AUTH FOR TRANSPORT IS [id number]
--- NOTE | 2017-11-30 16:30 | NUR ---
Laborer Cutting Tool Notes: I faxed to [facility] Patient's clinical Information and MD Order for short-term Skilled placement for Pt. and MD.
--- NOTE | 2017-11-30 16:51 | NUR ---
Drill Runner Helper Notes: I Contacted Shona at [facility] to informed her that I have faxed Patient's Clinical information and MD Order for Skilled Short-term placement for Physical Therapy and OT. Shona Confirmed that she has received and review Patient's clinicals and that patient will be accepted by MD. Huddleston at Room # 19-C. I thanked her for the information and made Casualty Underwriter Rosa Maria aware. Addendum: 11/30/17 at 1718 by Emiliana Velazquez CM Drill Runner Helper Notes: I Contacted Shona at [facility] to informed her that I have faxed Patient's Clinical information and MD Order for Skilled Short-term placement for Physical Therapy and OT. Shona Confirmed that she has received and review Patient's clinicals and that patient will be accepted by MD. Huddleston at Room # 19-C. I thanked her for the information and made Casualty Underwriter Rosa Maria aware.
--- NOTE | 2017-11-30 17:00 | NUR ---
continued to monitor pt on vent withsettings as charted breath sounds present bilat coarse sxn pt with min amt white secs ambu bag at bedside vent plugged into red outlet
--- NOTE | 2017-11-30 17:14 | NUR ---
PT IS AWAKE AND SEATED ON THE BED, VITAL SIGNS TAKEN AND BP IS 138/79, PULSE 94, RESPIRATIONS 18 AND O2 SAT AT 95%, MEDICATION GIVEN VIA IV PUSH. PT TOLERATED IT AND NO SIGN OF DISTRESS NOTED.
--- NOTE | 2017-11-30 17:17 | NUR ---
SPOKE WITH CHAY FROM [facility]. AUTH FOR [facility] IS [id number]. AUTH FOR [facility] IS [id number]. I FAXED FACE SHEET , ORDER AND LATEST PROGRESS NOTE, AND PT NOTES TO [facility] [phone] VAZQUEZ [phone].
--- NOTE | 2017-11-30 17:33 | NUR ---
ARRANGED TRANSPORT WITH [facility] NEXT AVAILABLE RESPIRATORY CARE TECHNICIAN TIME IS 10PM
--- NOTE | 2017-11-30 19:05 | NUR ---
ENDORSED PT TO MORGUE TECHNICIAN NURSELINCOLN FOR CONTINUITY OF CARE. PT IS STABLE AT THIS TIME.
--- NOTE | 2017-11-30 19:10 | NUR ---
RECEIVED PT FROM DAY SHIFT NURSE BAM-CORRY AT BEDSIDE. PT IS AWAKE, LYING ON THE BED -AOX4. O2 AT 2L NC IN PLACE. RESPIRATIONS EVEN, PT HAS IV LINES ON THE LEFT AC G. 20 IN SALINE LOCK AND RT FA G. 22 IN SALINE LOCK ALSO, INTACT. DISCUSSED PLAN OF CARE AND PT VERBALIZED UNDERSTANDING. NO S/S OF RESPIRATORY DISTRESS OR DISCOMFORT NOTED AT THIS TIME. WHITE BOARD UPDATED. BED IN LOWEST POSITION, BED BREAKS ON, AND SIDE RAILS ARE UP. BED SIDE TABLE AND CALL LIGHT ARE WITHIN REACH. WILL CONTINUE TO MONITOR.
[2017-11-30 20:00] VITALS: BP 147/85
--- NOTE | 2017-11-30 20:00 | NUR ---
VITAL SIGNS TAKEN AND TOLERATED WELL. NO S/S OF RESPIRATORY DISTRESS OR DISCOMFORT NOTED AT THIS TIME. WILL CONTINUE TO MONITOR.
--- NOTE | 2017-11-30 20:20 | NUR ---
PT LEFT UNIT WITH TRANSPORTATION BACK TO [facility]. BOTH IV SITES WERE D/C. ID BAND TAKEN OFF. HEART MONITOR TAKEN OFF. JONES CATHETER STILL IN PLACE. GOWN CHANGED FOR DISCHARGE. PT WAS TAKEN OFF UNIT VIA WHEELCHAIR WITH ALL PERSONAL BELONGINGS.
--- NOTE | 2017-11-30 21:00 | NUR ---
NURSE MILADY CROUCH [facility] CALLED AND REPORT WAS GIVEN.
--- NOTE | 2017-11-30 23:13 | NUR ---
NURSE HENNING FROM [facility] CALLED TO KNOW HOW LONG LEVAQUIN WILL BE GIVEN. LEVAQUIN PO DAILY FOR 7DAYS.
[2017-12-01] MEDS ORDERED: LEVOFLOXACIN 500 MG TAB PO SCH (09:00)
== END 2017-11-30 20:20 | DRG 133 ==
LOC: MED 12:38 → MTU 15:19
PROVIDERS: ADMIT Hospitalist; ATTEND Hospitalist
PROC: 5A09357 Assistance with Respiratory Ventilation, Less than 24 Consecutive Hours, Continuous Positive Airway Pressure (ICD-10-PCS; principal; 2017-11-27)
DX: J96.02 Acute respiratory failure with hypercapnia (principal); I50.41 Acute combined systolic (congestive) and diastolic (congestive) heart failure; E87.2 Acidosis; E87.1 Hypo-osmolality and hyponatremia; I11.0 Hypertensive heart disease with heart failure; J44.1 Chronic obstructive pulmonary disease with (acute) exacerbation; G40.909 Epilepsy, unspecified, not intractable, without status epilepticus; F20.9 Schizophrenia, unspecified; N39.0 Urinary tract infection, site not specified; F17.210 Nicotine dependence, cigarettes, uncomplicated; Z79.899 Other long term (current) drug therapy
CPT/HCPCS: 36415; 36600; 51702; 70450; 71045; 80053; 80305; 81001; 82550; 82553; 82803; 83605; 83735; 83880; 84484; 85025; 85610; 85730; 87040; 87081; 87086; 87186; 93005; 93971; 94640; 96361; 96365; 96375; 97110; 97116; 97530; 99291; J1650; J1940; J1956; J2543; J2920; J2930; J3490; J7030; J7060; J7613; J7620; J7644; Q0092